=== PATIENT | female | born 1970 | race Caucasian/White ===

== ENCOUNTER 2025-10-09 08:41 | Outpatient (REF) | payer OTHER, SELFPAY ==
[2025-10-09 15:21] LABS: Appearance Urine Clear; Glucose Urine UA Negative (Negative); PH 5.5 (5.0-9.0); Specific Gravity - Urine 1.010 (1.005-1.025)
[2025-10-09 15:28] LABS: MANUAL DIFF FLAG NO
[2025-10-09 15:34] LABS: Hematocrit 41.4 % (37.0-47.0); Hemoglobin 13.1 g/dl (12.0-16.0); Imm Gran Abs Auto 0.02 X10*3/uL (0.00-0.03); Imm Gran Pct Auto 0.3 % (0.0-0.4); Lymphocytes Absolute Auto 2.5 X10*3/uL (1.2-4.9); Mean Corpuscular HGB Conc 31.6 g/dl (31.0-35.0); Mean Corpuscular Hemoglobin 28.7 pg (27.0-33.0); Mean Corpuscular Volume 90.8 fL (80.0-98.0); NRBC Abs Auto 0.000 X10*3/uL (0.0-0.012); NRBC Pct Auto 0.0 /100WBC (0.0-0.2); Platelet Count 308 X10*3/uL (160-400); Red Blood Count 4.56 X10*6/uL (4.20-5.50); White Blood Count 7.4 X10*3/uL (4.8-10.8)
[2025-10-09 16:31] LABS: Alanine Aminotransferase 20 U/L (0-31); Albumin Level 4.6 g/dL (3.5-5.0); Alkaline Phosphatase 87 U/L (39-117); Anion Gap 13 (12-20); Aspartate Amino Transferase 31 U/L (5-31); Blood Urea Nitrogen 15 mg/dL (9-16); Calcium 9.7 mg/dL (8.4-10.2); Carbon Dioxide 27 mmol/L (22-29); Chloride 104 mmol/L (96-108); Cholesterol 219 mg/dL (<200); Estimated Glomerular Filt Rate > 60; HDL Cholesterol 66 mg/dL (>40); Potassium 4.3 mmol/L (3.3-5.1); Sodium 140 mmol/L (135-145); Total Protein 7.8 g/dL (6.5-8.0); Triglycerides 88 mg/dL (<150)
[2025-10-09 17:22] LABS: Folate 9.4 ng/mL (> or = 4.0); Vitamin B12 288 pg/mL (200-900)
[2025-10-10 06:58] LABS: Lyme Abs Screen <0.90 index
[2025-10-10 12:08] LABS: Anti Nuclear Antibody Screen NEGATIVE (NEGATIVE)
== END 2025-10-09 08:42 | disposition home or self-care (01) ==
LOC: HO.WFDLDS 08:41
PROVIDERS: Visit Provider Physician Assistant
DX: R73.03 Prediabetes (principal); R76.89 Other specified abnormal immunological findings in serum; M19.041 Primary osteoarthritis, right hand; M19.042 Primary osteoarthritis, left hand; R30.0 Dysuria; R73.01 Impaired fasting glucose; K57.92 Diverticulitis of intestine, part unspecified, without perforation or abscess without bleeding; H93.19 Tinnitus, unspecified ear; F17.210 Nicotine dependence, cigarettes, uncomplicated; F41.8 Other specified anxiety disorders; Z86.69 Personal history of other diseases of the nervous system and sense organs
CPT/HCPCS: 36415; 80053; 80061; 81003; 82043; 82570; 82607; 82746; 83036; 84443; 85025; 85652; 86038; 86431; 86617; 86618; 96127

== ENCOUNTER 2025-10-09 08:41 | Outpatient (AMB) | payer OTHER, SELFPAY ==
--- NOTE | 2025-10-09 09:00 | MHC.PC.OV ---
Vital Signs 10/09/25 09:06 Height 5 ft 5.35 in Weight 319 lb BMI 52.5 BP 139/66 Blood Pressure Location Lt brachial Position Sitting Respiration 16 Pulse 72 Pulse Source Pulse Oximeter Temp 97.8 F Temp Source Oral Pulse Oximetry (%) 97 Oxygen Delivery Method Room Air Intake Visit Reasons: Anxiety and arthritis Intake Note: New patient visit Director Of Anesthesia Services Required: No Allergies cephalexin (From Keflex) Allergy (Severe, Verified 10/09/25 09:04) throat swelling Medication List - Last Reconciled 10/09/25 by Hanny Yuan PA-C No Known Home Meds Tobacco use date assessed: 10/09/25 Dental Screening Dental Screen Date: 10/09/25 Did you have a dental visit in the last 12 months?: No Did you have a dental problem in the last 6 months where you did not have access to dental care?: No Was dental information given to patient?: Patient declined HPI Anxiety and arthritis HPI Details Pt is a 54 y/o female who presents today to establish care. She has a significant past medical history of generalized anxiety disorder, mild depression, osteoarthritis, carpal tunnel syndrome, positive RA HEENT: States that for years she has had tinnitus. She does note that it is a little bit harder to hear out of her right ear when compared to the left but she still does have hearing. Does not believe that this was sudden. No ear pain, drainage or headaches. GI: recent flare up of diverticulitis 1 month ago at [facility] and admitted for 3 days. They recommended colonoscopy. No notes available today Msk: bilateral knee replacement 5-10 years ago. hx of left achilles tendon rupture. s/p right 2nd toe amputation. hx of bilateral CTS surgery. has bilateral hand arthritis. She is not on any medications for her chronic pains. Rheum: hx of RA positive, in the past was on medication hydroxychloroquine but states that she had GI upset with this. Has not been on this in quite some time. Psych: has been on sertraline 200 mg for many years and does not feel this is effective. She states that different points she has just stopped the medication and did feel that her anxiety was worse and that she needed to go back on something. She is tearful today and states that her anxiety is exacerbated. She is frustrated with her chronic pain and they have had a lot of changes and moving. 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 1. Little interest or pleasure in doing things: several days 2. Feeling down, depressed, or hopeless: several days 3. Trouble falling or staying asleep, or sleeping too much: several days 4. Feeling tired or having little energy: several days 5. Poor appetite or overeating: not at all 6. Feeling bad about yourself - or that you are a failure or have let yourself or your family down: several days 7. Trouble concentrating on things, such as reading the newspaper or watching television: several days 8. Moving or speaking so slowly that other people could have noticed. Or the opposite - being so fidgety or restless that you have been moving around a lot more than usual: not at all 9. Thoughts that you would be better off or of hurting yourself in some way: not at all Total score: 6 Depression Screening Interpretation: Positive Depression Screening Follow-up: Existing condition, In treatment and New Medication prescribed Depression Screening Done: Yes 40539 - PHQ-9 Billing: Yes Source: Developed by Drs. Saad Malhotra, Jenny Golden, Dewayne Cuadra and colleagues, with an educational yojana from [employer] Thrive Questionnaire I am a: Patient What is your living situation today?: I have a steady place to live Within the past 12 months, did the food you bought not last and you didn't have the money to get more?: Never true Within the past 12 months, did you worry whether your food would run out before you got money to buy more?: Never true Do you have trouble paying for medicines?: No Do you have trouble getting transportation to medical appointments?: No Do you have trouble paying your heating and electricity bill?: No Do you have trouble taking care of your child, family member or friend?: No Do you have trouble with day-to-day activities such as bathing, preparing meals, shopping, managing finances, etc.?: No Are you currently unemployed and looking for a job?: No Are you interested in more education?: No Please select the resources that you would like help with: None Currently or been in a relationship where the following occur: No concerns reported THRIVE Score: 0 AUDIT C Alcohol Use Questionnaire (AUDIT-C) 1. How often do you have a drink containing alcohol?: Never 3. How often do you have six or more drinks on one occasion?: Never Total Score: 0 Score Reviewed/Action Taken: Yes TREVOR-7 AMB Questionnaire TREVOR-7 Feeling nervous, anxious, or on edge: 1 = Several days Not being able to stop or control worryin = Several days Worrying too much about different things: 1 = Several days Trouble relaxin = Several days Being so restless that it is hard to sit still: 1 = Several days Becoming easily annoyed or irritable: 1 = Several days Feeling afraid as if something awful might happen: 1 = Several days Total TREVOR-7 score (0-4 normal; 5-9 mild; 10-14 moderate; 15-21 severe): 7 Source: Developed by Drs. Saad Malhotra, Jenny Golden, Dewayne Cuadra and colleagues, with an educational yojana from [employer] TREVOR-7 Assessment Billing TREVOR-7 Assessment Tool: TREVOR-7 Assessment 92802 Physical exam (Primary Care) Vital Signs: Last Vital Signs Temp 97.8 F 10/09/25 09:06 Pulse 72 10/09/25 09:06 Resp 16 10/09/25 09:06 BP 139/66 10/09/25 09:06 Pulse Ox 97 10/09/25 09:06 Oxygen Delivery Method Room Air 10/09/25 09:06 BMI result Body Mass Index 52.5 Tobacco/Smoking Status: Tobacco use Status Tobacco use date assessed 10/09/25 10/09/25 09:10 Patient Tobacco Use Status Former Tobacco user 10/09/25 09:10 e-Cigarette/Vaping Use Never Used 10/09/25 09:10 PHQ-9: PHQ-9 Score PHQ-9: Total score 6 10/09/25 10:15 Depression Screening Interpretation: Positive Depression Screening Follow-up: Existing condition, In treatment and New Medication prescribed Currently or been in a relationship where the following occur: No concerns reported Const Orientation/consciousness: patient oriented x3 HENMT Ears: hearing grossly normal bilaterally Neck Thyroid: Thyroid normal Lymphatic: no lymphadenopathy noted Resp Auscultation: clear to auscultation bilaterally Cardio Rate: regular rate Rhythm: regular rhythm Heart sounds: S1 normal heart sound present and S2 normal heart sound present GI Inspection: Yes normal to inspection Palpation (GI): Soft to palpation and Other GI palpation findings present (nontender, no cva tenderness) Auscultation: normoactive bowel sounds Rectal Exam - Female: deferred Skin General skin exam: no rashes or lesions noted Neuro General: patient oriented x3, gait normal and no focal motor deficits Coding Level of Care Code New Pt Level 5 (22870) Add On Problem Visit Only Diagnoses Diverticulitis K57.92 Osteoarthritis of hands, bilateral M19.041; M19.042 Rheumatoid factor positive R76.89 Hx of carpal tunnel syndrome Z86.69 Prediabetes R73.03 Tinnitus H93.19 Anxiety with depression F41.8 Additional Codes TREVOR-7 Assessment Billing - TREVOR-7 Assessment Tool: TREVOR-7 Assessment 81485 ([id number]) PHQ-9 - 27370 - PHQ-9 Billing: Yes ([id number]) Assessment & Plan Assessment & Plan (1) Diverticulitis: Code(s): K57.92 - Diverticulitis of intestine, part unspecified, without perforation or abscess without bleeding Category: Medical Plan: Symptoms have since resolved Referral to GI (2) Osteoarthritis of hands, bilateral: Code(s): M19.041 - Primary osteoarthritis, right hand; M19.042 - Primary osteoarthritis, left hand Category: Medical Plan: X-rays ordered Referral to hand surgeon We will try Relafen. Discussed risks and benefits and adverse effects of this medication (3) Rheumatoid factor positive: Code(s): R76.89 - Other specified abnormal immunological findings in serum Category: Medical Plan: Labs ordered today Referral to rheumatology (4) Hx of carpal tunnel syndrome: Code(s): Z86.69 - Personal history of other diseases of the nervous system and sense organs Category: Medical Plan: As above (5) Prediabetes: Code(s): R73.03 - Prediabetes Category: Medical Plan: A1c ordered Wants to start a GLP 1 (6) Tinnitus: Code(s): H93.19 - Tinnitus, unspecified ear Category: Medical Plan: Referral to ENT (7) Anxiety with depression: Code(s): F41.8 - Other specified anxiety disorders Category: Medical Plan: We will taper off of sertraline. She will then start venlafaxine. We discussed risks and benefits and adverse effects of this medication. Advised to seek emergent medical treatment should anything worsen or change. Patient understands and agrees with this plan. Plan Bone density ordered Mammogram ordered Referral to GI ordered Labs ordered today. We will follow up pending test results 1 hours spent today in [id number] time reviewing a list of her concerns, documenting and completing a plan with pt and counseling on medications Orders: Orders Erythrocyte Sedimentation Rate Today M19.041 - Primary osteoarthritis, right hand, M19.042 - Primary osteoarthritis, left hand, R73.03 - Prediabetes, R76.89 - Other specified abnormal immunological findings in serum Rheumatoid Factor Today M19.041 - Primary osteoarthritis, right hand, M19.042 - Primary osteoarthritis, left hand, R73.03 - Prediabetes, R76.89 - Other specified abnormal immunological findings in serum TSH reflex Free T4 Today M19.041 - Primary osteoarthritis, right hand, M19.042 - Primary osteoarthritis, left hand, R73.03 - Prediabetes, R76.89 - Other specified abnormal immunological findings in serum UA CC w/rflx Micro + Cult Today M19.041 - Primary osteoarthritis, right hand, M19.042 - Primary osteoarthritis, left hand, R30.0 - Dysuria, R73.03 - Prediabetes, R76.89 - Other specified abnormal immunological findings in serum Microalbumin, Random (w Creat) Today M19.041 - Primary osteoarthritis, right hand, M19.042 - Primary osteoarthritis, left hand, R73.03 - Prediabetes, R76.89 - Other specified abnormal immunological findings in serum Vitamin B12 and Folate Today M19.041 - Primary osteoarthritis, right hand, M19.042 - Primary osteoarthritis, left hand, R73.03 - Prediabetes, R76.89 - Other specified abnormal immunological findings in serum, Z86.69 - Personal history of other diseases of the nervous system and sense organs MM screening mammo BI Today Z12.31 - Encounter for screening mammogram for malignant neoplasm of breast XR DEXA axial skeleton Today Z78.0 - Asymptomatic menopausal state XR Hand Bilat min 3v Today M79.641 - Pain in right hand, M79.642 - Pain in left hand Comprehensive [place]. Panel Fast Today M19.041 - Primary osteoarthritis, right hand, M19.042 - Primary osteoarthritis, left hand, R73.03 - Prediabetes, R76.89 - Other specified abnormal immunological findings in serum Complete Blood Count Auto Diff Today M19.041 - Primary osteoarthritis, right hand, M19.042 - Primary osteoarthritis, left hand, R73.03 - Prediabetes, R76.89 - Other specified abnormal immunological findings in serum Lipid Panel Today M19.041 - Primary osteoarthritis, right hand, M19.042 - Primary osteoarthritis, left hand, R73.03 - Prediabetes, R76.89 - Other specified abnormal immunological findings in serum Hemoglobin A1c Today M19.041 - Primary osteoarthritis, right hand, M19.042 - Primary osteoarthritis, left hand, R73.01 - Impaired fasting glucose, R73.03 - Prediabetes, R76.89 - Other specified abnormal immunological findings in serum KHUSHBU Reflex Titer and Pattern Today M19.041 - Primary osteoarthritis, right hand, M19.042 - Primary osteoarthritis, left hand, R73.03 - Prediabetes, R76.89 - Other specified abnormal immunological findings in serum Lyme IgG/IgM w/reflex to WB Today M19.041 - Primary osteoarthritis, right hand, M19.042 - Primary osteoarthritis, left hand, R73.03 - Prediabetes, R76.89 - Other specified abnormal immunological findings in serum Referrals Rheumatology Referral M19.041 - Primary osteoarthritis, right hand, M19.042 - Primary osteoarthritis, left hand, R76.89 - Other specified abnormal immunological findings in serum Ear/Nose/Throat Referral H93.19 - Tinnitus, unspecified ear Gastroenterology Referral K57.92 - Diverticulitis of intestine, part unspecified, without perforation or abscess without bleeding Hand Surgery Referral M19.041 - Primary osteoarthritis, right hand, M19.042 - Primary osteoarthritis, left hand, R76.89 - Other specified abnormal immunological findings in serum, Z86.69 - Personal history of other diseases of the nervous system and sense organs VESSEL WELDER Referral Z01.419 - Encounter for gynecological examination (general) (routine) without abnormal findings Medications: New nabumetone 500 mg PO BID 60 tabs 3RF venlafaxine ER (Effexor XR) 37.5 mg PO BEDTIME 30 caps 0RF
[2025-10-09 09:06] VITALS: BP 139/66; PULSE 72; RESP 16; TEMP 36.6; O2SAT 97; BMI 52.5
== END 2025-10-09 10:22 | disposition home or self-care (01) ==
LOC: HO.HMCFM 08:42
PROVIDERS: PCP Physician Assistant; Visit Provider Physician Assistant
DX: K57.92 Diverticulitis of intestine, part unspecified, without perforation or abscess without bleeding (principal); M19.041 Primary osteoarthritis, right hand; M19.042 Primary osteoarthritis, left hand; R73.03 Prediabetes; F41.8 Other specified anxiety disorders; H93.11 Tinnitus, right ear; R76.89 Other specified abnormal immunological findings in serum; Z86.69 Personal history of other diseases of the nervous system and sense organs

== ENCOUNTER 2025-10-30 13:16 | Outpatient (AMB) | payer OTHER, SELFPAY ==
--- NOTE | 2025-10-30 13:46 | MHC.PC.OV ---
Vital Signs 10/30/25 13:51 10/30/25 13:57 Height 5 ft 3.5 in Weight 321 lb BMI 56.0 BP 155/65 H 128/60 Blood Pressure Location Lt brachial Lt brachial Position Sitting Sitting Respiration 16 Pulse 77 Pulse Source Pulse Oximeter Temp 97.9 F Temp Source Oral Pulse Oximetry (%) 99 Oxygen Delivery Method Room Air Intake Visit Reasons: Sinus infection Intake Note: head congestion, wheezing, dizzy, cough. yellow phlegm. 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 She has a significant past medical history of generalized anxiety disorder, mild depression, osteoarthritis, carpal tunnel syndrome, positive RA HEENT: She has been having sinus pain and pressure x 1 week. She states the postnasal drip is causing a cough. She denies any persistent fever but has felt feverish and chills. She does note some intermittent wheezing. No shortness on breath. Msk: bilateral knee replacement 5-10 years ago. hx of left achilles tendon rupture. s/p right 2nd toe amputation. hx of bilateral CTS surgery. has bilateral hand arthritis. She is not on any medications for her chronic pains. Rheum: hx of RA positive, in the past was on medication hydroxychloroquine but states that she had GI upset with this. Has not been on this in quite some time. Psych: She trialed venlafaxine following sertraline but does not feel that it is helpful. In the past also tried trazodone which was ineffective. She still has a hard time falling asleep and staying asleep. 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 chemicals) Cognitive needs: No Hearing needs: No Vision needs: No Questionnaire Thrive Questionnaire Date Thrive assessed: 10/09/25 I am a: Patient What is your living situation today?: I have a steady place to live Within the past 12 months, did the food you bought not last and you didn't have the money to get more?: Never true Within the past 12 months, did you worry whether your food would run out before you got money to buy more?: Never true Do you have trouble paying for medicines?: No Do you have trouble getting transportation to medical appointments?: No Do you have trouble paying your heating and electricity bill?: No Do you have trouble taking care of your child, family member or friend?: No Do you have trouble with day-to-day activities such as bathing, preparing meals, shopping, managing finances, etc.?: No Are you currently unemployed and looking for a job?: No Are you interested in more education?: No Currently or been in a relationship where the following occur: No concerns reported THRIVE Score: 0 Physical exam (Primary Care) Vital Signs: Last Vital Signs Temp 97.9 F 10/30/25 13:51 Pulse 77 10/30/25 13:51 Resp 16 10/30/25 13:51 BP 128/60 10/30/25 13:57 Pulse Ox 99 10/30/25 13:51 Oxygen Delivery Method Room Air 10/30/25 13:51 BMI result Body Mass Index 56.0 Tobacco/Smoking Status: Tobacco use Status Tobacco use date assessed 10/09/25 10/30/25 13:46 Patient Tobacco Use Status Former Tobacco user 10/30/25 13:53 e-Cigarette/Vaping Use Never Used 10/30/25 13:53 Thrive Assessment: Date of Thrive Assessment Date Thrive assessed 10/09/25 10/30/25 13:46 Currently or been in a relationship where the following occur: No concerns reported Const Orientation/consciousness: patient oriented x3 HENMT Other: TMs dome-shaped a small air-fluid levels bilaterally. Nasal mucosa erythematous and edematous. Sinus tenderness present. Ears: hearing grossly normal bilaterally Neck Thyroid: Thyroid normal Lymphatic: no lymphadenopathy noted Resp Other: Mild expiratory wheezing noted. No accessory muscle use noted. Otherwise clear Effort & Inspection: able to speak in complete sentences Cardio Rate: regular rate Rhythm: regular rhythm Heart sounds: S1 normal heart sound present and S2 normal heart sound present GI Inspection: Yes normal to inspection Palpation (GI): Soft to palpation and Other GI palpation findings present (nontender, no cva tenderness) Auscultation: normoactive bowel sounds Rectal Exam - Female: deferred Skin General skin exam: no rashes or lesions noted Neuro General: patient oriented x3, gait normal and no focal motor deficits Coding Level of Care Code Est Pt Level 4 (10449) Add On Problem Visit Only Diagnoses Insomnia G47.00 Bacterial sinusitis J32.9; B96.89 Wheeze R06.2 Assessment & Plan Assessment & Plan (1) Insomnia: Code(s): G47.00 - Insomnia, unspecified Category: Medical Plan: We will try hydroxyzine (2) Bacterial sinusitis: Code(s): J32.9 - Chronic sinusitis, unspecified; B96.89 - Other specified bacterial agents as the cause of diseases classified elsewhere Category: Medical Plan: Augmentin ordered. States that she tolerates this well and is taken this in the past despite her allergy listed to cephalexin. States that she routinely has taken penicillin, amoxicillin and Augmentin and has always tolerated very well. (3) Wheeze: Code(s): R06.2 - Wheezing Category: Medical Plan: Prednisone taper ordered. Reviewed risks and benefits and adverse effects of this medication. Medications: New prednisone take 3 tab po x 3 days, take 2 tab po x 3 days, 1 tab po x 3 days 18 tabs 0RF amoxicillin-pot clavulanate 875-125 mg 1 tab PO Q12H 20 tabs 0RF hydroxyzine HCl 25 mg PO BEDTIME 90 tabs 0RF Discontinued venlafaxine ER (Effexor XR) Discontinued Reason: Doctor's Order 37.5 mg PO BEDTIME 30 caps 0RF
[2025-10-30 13:51] VITALS: BP 155/65; PULSE 77; RESP 16; TEMP 36.6; O2SAT 99; BMI 56.0
[2025-10-30 13:57] VITALS: BP 128/60
--- OUTSIDE RECORDS SUMMARY | 2025-10-30 14:44 | XMS_ITS | Clinical Summary ---
Author Organization [address] [facility] Address [address] [place] [address] Phone Care Team Providers Care Composite Layup Worker Name Role Phone J Carlos Flores MD Primary Care Provider Allergies Active Allergy Reactions Criticality Noted Date Comments Cephalexin Shortness of breath High 07/30/2024 Shellfish Derived Shortness of breath High Medications estradiol-noret hindrone (COMBIPATCH) 0.05-0.14 mg/[address] 1 patch on the skin 2 (two) times a week. Active Advair HFA 45-21 mcg/actuation inhaler 06/19/2024 Active metFORMIN (GLUCOPHAGE) 500 mg tablet Take 1 tablet (500 mg total) by mouth 2 times daily. Active albuterol HFA (PROAIR HFA ; PROVENTIL HFA ; VENTOLIN HFA) 90 mcg/actuation inhaler Inhale 2 puffs by mouth every 6 (six) hours if needed for wheezing. 6.7 g 3 03/05/2025 Active nortriptyline (PAMELOR) 10 mg capsule Take 1-5 capsules (10-50 mg total) by mouth at bedtime. 100 each 03/05/2025 Active sertraline (ZOLOFT) 100 mg tablet Take 2 tablets (200 mg total) by mouth 1 (one) time each day. 60 each 09/03/2025 Active Active Problems Problem Noted Date Diagnosed Date Mixed hyperlipidemia 01/13/2025 Morbid obesity with BMI of 50.0-59.9, adult 11/02 Primary insomnia 09/09/2024 Moderate asthma 07/30/2024 Assessment & Plan (04/01/2025 11:11 AM EDT): Start taking advair twice a day. Use albuterol as needed. If worsening or no improvement with wheezing, let us know. Assessment & Plan (02/18/2025 10:08 AM EDT): No signs of acute exacerbation. Continue inhalers. Let us know if this worsens. Assessment & Plan (08/15/2024 2:43 PM EDT): Cont albuterol as needed Assessment & Plan (07/30/2024 1:58 PM EDT): Use albuterol as needed Anxiety 07/30/2024 Assessment & Plan (11/26/2024 9:03 AM EST): Add nortriptylene. Prescribed, renewed, or reviewed meds including risks and possible side effects. Assessment & Plan (07/30/2024 1:58 PM EDT): Doing fair. Cont to wean as able. Trial of trazodone for insomnia. Amputated toe of right foot 12/01/2021 Prediabetes 12/01/2020 Immunizations Immunization Administration Dates Next Due COVID-19 (Pfizer/Comirnaty) 12yo and older 07/30 Influenza trivalent, 0.5mL, preservative free (Fluarix; FluLaval; Fluzone) ages 6mo and older (Afluria) 3 years and older 07/30/2024 [employer] SARS-CoV-2 COVID-19, mRNA, LNP-S, preservative free 01/28/2021,01/03/2021 Surgical History Surgery Date Site/Laterality Comments KNEE ARTHROPLASTY Bilateral FOOT SURGERY Right ACHILLES TENDON SURGERY Left CARPAL TUNNEL RELEASE Bilateral JOINT REPLACEMENT TUBAL LIGATION Medical History Medical History Date Comments Anxiety Arthritis Asthma Obesity Family History Medical History Relation Name Comments Clotting disorder Father actually b lood disorder Coronary artery disease Mother Diabetes Mother Breast cancer Mother's Sister 1 Aunt Iris Breast cancer Mother's Sister 2 Iris. Burns Arthritis Sister Madhavi Mercado Rheum arthritis Sister Madhavi Mercado Relation Name Status Comments Brother Alive Father Mother Alive Mother's Sister 1 Aunt Iris Alive Mother's Sister 2 Iris. Burns Sister Madhavi Mercado Alive Social History Tobacco Use Types Packs/Day Years Used Date Smoking Tobacco: Never Smokeless Tobacco: Never Tobacco Cessation:Counseling Given: No Alcohol Use Standard Drinks/Week Comments Yes 0 (1 standard drink = 0.6 oz pur e alcohol) Maybe 4 beers on the weekend Housing Instability Answer Date Recorde d Are you worried that in the next 2 months you may not have stable housing? No 08/14/2024 Food Access & Nutrition Answer Date Rec orded Do you have access to a vari ety of food including fruits and vegetables? Yes 08/14/2024 Access to Healthcare Answer Date Record ed Within the last 3 months, ho w many times did you visit the emergency department for your medical care? 0 08/14/2024 Health Literacy Answer Date Recorded How often do you need to hav e someone help you when you read instructions, pamphlets, or other written material from your doctor or pharmacy? Never 08/14/2024 Caregiver: How often do you need to have someone help you when you read instructions, pamphlets, or other written material from your doctor or pharmacy? Not on file 08/14/2024 Financial Risk Answer Date Recorded How hard is it for you to pa y for the very basics like food, housing, medical care, and air conditioning / heating? Not very hard 08/14/2024 Transportation Answer Date Recorded Has the lack of transportati on kept you from meetings, work, or from getting things needed for daily living? No Has the lack of transportati on kept you from medical appointments or from getting medications? No 08/14/2024 Social Isolation Answer Date Recorded How often do you feel lonely or isolated from th ose around you? Never 08/14/2024 Food Risk Answer Date Recorded Within the past 12 months we worried whether our food would run out before we got money to buy more. Never true 08/14/2024 Within the past 12 months th e food we bought just didn't last and we didn't have money to get more. Never true 08/14/2024 Dependent Care Answer Date Recorded Do you need help finding or paying for care for your loved ones. For example, early childhood lead teacher or elderly care for an older adult? No 08/14/2024 Education Answer Date Recorded Do you think completing more education or training, like finishing a GED, going to college, or learning a trade, would be helpful for you? No 08/14/2024 Comments No Sex and Gender Information Value Date Recorded Sex Assigned at Female 07/30/2024 4:03 PM EDT Legal Sex Female 12:18 PM EDT Gender Identity Female 07/30/2024 4:03 PM EDT Sexual Orientation Straight 07/30/2024 4: 03 PM EDT Obstetrics History Para Term AB IAB SAB Ectopic Multiple Livin g Live Births 1 Date Outcome GA Total Labor Labor/2nd/3rd Weight Sex Type Anes PTL Caryn A1 A5 Name Clin Term Last Filed Vital Signs Vital Sign Reading Time Taken Comments Blood Pressure 136/74 11/26/2024 8:33 AM EST Pulse 65 11/26/2024 8:33 AM EST Temperature - - Respiratory Rate - - Oxygen Saturation - - Inhaled Oxygen Concentration - - Weight 140 kg (308 lb 9.6 oz) 11/26/2024 8:33 AM EST Height 165.1 cm (5' 5 ) 11/26/2024 8:33 AM EST Body Mass Index 51.35 11/26/2024 8:33 AM EST Plan of Treatment Health Maintenance Due Date Last Done Comments Colorectal Cancer Screening: Colonoscopy 1968 DTaP,Tdap,and Td Vaccines (1 - Tdap) 1987 Hepatitis B Vaccines (1 of 3 - 19+ 3-dose series) 1987 Pneumococcal Vaccine: 50+ Years (1 of 2 - PCV) 1987 RSV Immunization Adult Patients (1 - Risk 50-74 years 1-dose series) 2018 Zoster Vaccines (1 of 2) 2018 HIV Screening 07/05/2024 Hepatitis C Screening 07/05/2024 COVID-19 Vaccine (4 - 2024-2 6 season) 2025 07/30/2024, 01/28/2021, 01/03/2021 Influenza Vaccine (#1) 2025 07/30/2024 Social Influencers of Health Screening 08/14/2025 08/14/2024 Breast Cancer Screening 09/19/2026 09/19/20, 05/09/2023 Cholesterol Screening (Lipid Panel) 08/10/2029 08/10/2024, 08/10/2024 Cervical Cancer Screening: HPV 12/24/2029 12/24/2024 Depression Screening Completed 01/08/2025 HIB Vaccines Aged Out No longer eligi ble based on patient's age to complete this topic HPV Vaccines Aged Out No longer eligi ble based on patient's age to complete this topic Hepatitis A Vaccines Aged Out No long er eligible based on patient's age to complete this topic IPV Vaccines Aged Out No longer eligi ble based on patient's age to complete this topic MMR Vaccines Aged Out No longer eligi ble based on patient's age to complete this topic Meningococcal ACWY Vaccine Aged Out N o longer eligible based on patient's age to complete this topic Meningococcal B Vaccine Aged Out No l onger eligible based on patient's age to complete this topic RSV Immunization Patients Under 20 months Aged Out No longer eligible b ased on patient's age to complete this topic Varicella Vaccines Aged Out No longer eligible based on patient's age to complete this topic Procedures Procedure Name Priority Date/Time Associated Diagnosis Comments MG MAMMO DIGITAL SCREENING W YAYA BILAT Routine 09/19/2024 8:59 AM EST Breast cancer screening by mammogram from Last 3 Months or Most Recently Relevant to Health Maintenance Results * MG Mammo Digital Screening w Yaya bilat (09/19/2024 8:59 AM EST) Anatomical Region Laterality Modality Breast Bilateral Mammography 09/21/2024 1:31 PM EST Impressions 09/21/2024 1:39 PM EST 1. Negative mammogram. BI-RADS: 1 - Negative RECOMMENDATIONS: Screening bilateral mammogram is recommended in 1 year. EPIC MAMMO LOCATION: [facility]. [address] [place] [address], [address]. [phone]. This facility uses a reminder system to ensure all patients receive reminder letters and/or direct phone calls for appointments. This includes reminders for routine screening mammograms, diagnostic mammograms or other breast imaging procedures where appropriate. This patient will be placed in the appropriate reminder system. [facility] [place] (NCI) Breast Cancer Risk Assessment (Lifetime) Score: less than 15%, Average Risk Electronically reviewed and signed by: Lucas Lowery MD 09/21/2024 1:39 PM -------- FINAL REPORT -------- Dictated By: Lucas Lowery Dictated Date: 09/21/2024 13:31 Assigned Physician: Lucas Lowery Reviewed and Electronically Signed By: Lucas Lowery Signed Date: 09/21/2024 13:39 Workstation ID: [id number] Transcribed By: Self Edit Transcribed Date: 09/21/2024 13:31 Patients: If you have questions regarding some of the verbiage in your report, please visit [email or web address] for a definition. If you have any other questions please contact your physician. Physicians: If your patient was seen at a [facility] ([facility] or [facility] and you have questions 23/05 regarding this report, please call: [phone]. Narrative 09/21/2024 1:39 PM EST MG MAMMO DIGITAL SCREENING W YAYA BILAT COMPLETED DATE: 09/19/2024 8:36 AM COMPARISON: April 2023 and before CLINICAL HISTORY: Screening for breast cancer. Family history of breast cancer. ADDITIONAL HISTORY PROVIDED FROM CLINICAL SERVICE: None Provided FINDINGS: DENSITY: Breast Density Category B: The breasts have scattered areas of fibroglandular density. There are no mammographic findings suspicious for malignancy. Breast physical examination was not performed as part of this evaluation. These images were obtained with FDA-approved digital mammography equipment. Computer-aided detection was performed. Bilateral FDA-approved tomography was performed. Procedure Note Lucas Lowery MD - 09/21/2024 MG MAMMO DIGITAL SCREENING W AYYA BILAT COMPLETED DATE: 09/19/2024 8:36 AM COMPARISON: April 2023 and before CLINICAL HISTORY: Screening for breast cancer. Family history of breastcancer. ADDITIONAL HISTORY PROVIDED FROM CLINICAL SERVICE: None Provided FINDINGS: DENSITY: Breast Density Category B: The breasts have scattered areas offibroglandular density. There are no mammographic findings suspicious for malignancy. Breast physical examination was not performed as part of this evaluation. These images were obtained with FDA-approved digital mammographyequipment. Computer-aided detection was performed. Bilateral FDA-approvedtomography was performed. IMPRESSION: 1. Negative mammogram. BI-RADS: 1 - Negative RECOMMENDATIONS: Screening bilateral mammogram is recommended in 1 year. EPIC MAMMO LOCATION: [facility]. [address] [place] [address], [address]. [phone]. This facility uses a reminder system to ensure all patients receivereminder letters and/or direct phone calls for appointments. This includesreminders for routine screening mammograms, diagnostic mammograms or otherbreast imaging procedures where appropriate. This patient will be placedin the appropriate reminder system. [facility] [place] (NCI) Breast Cancer Risk Assessment (Lifetime)Score: less than 15%, Average Risk Electronically reviewed and signed by: Lucas Lowery MD 41:39 PM -------- FINAL REPORT -------- Dictated By: Lucas Lowery Dictated Date: 09/21/2024 13:31 Assigned Physician: Lucas Lowery Reviewed and Electronically Signed By: Lucas Lowery Signed Date: 09/21/2024 13:39 Workstation ID: [id number] Transcribed By: Self Edit Transcribed Date: 09/21/2024 13:31 Patients: If you have questions regarding some of the verbiage in yourreport, please visit [email or web address] for a definition. If you have anyother questions please contact your physician. Physicians: If your patient was seen at a [facility] ([facility]) or [facility] and you havequestions 23/05 regarding this report, please call: [phone]. us J Carlos Flores MD IMG BI PROCEDURES Final Result from Last 3 Months or Most Recently Relevant to Health Maintenance Insurance [employer] Care Teams Composite Layup Worker Relationship Specialty [place] [address] [place] [address] PCP - General Family Medicine 01/08/25
== END 2025-10-30 14:21 | disposition home or self-care (01) ==
LOC: HO.HMCFM 13:17
PROVIDERS: PCP Physician Assistant; Visit Provider Physician Assistant
DX: G47.00 Insomnia, unspecified (principal); J32.9 Chronic sinusitis, unspecified; B96.89 Other specified bacterial agents as the cause of diseases classified elsewhere; R06.2 Wheezing